=== PATIENT | male | born 1980 | race American Indian/Alaskan Native ===

== ENCOUNTER 2017-10-07 03:25 | Emergency (ER) | payer OTHER ==
[2017-10-07 03:55] VITALS: BP 117/69; PULSE 52; TEMP 98.7; BMI 23.6
--- NOTE | 2017-10-07 04:23 | PDOC ---
History of Present Illness - General Chief Complaint: Respiratory Stated Complaint: DIFFICULTY BREATHING Time Seen by Provider: 10/07/17 04:01 History Source: Patient Exam Limitations: No Limitations - History of Present Illness Initial Comments: CHIEF COMPLAINT: 36 y/o afebrile male with PMH COPD c/o chest pain with inspiration since yesterday evening. HISTORY OF PRESENT ILLNESS: The patient states this feels like the same pain he had when he had a pleural effusion. He denies f/c, n/v/d, cough, hemoptysis , abdominal pain, and all other symptoms. Vital signs on arrival are notable for pulse of 52. REVIEW OF SYSTEMS: GENERAL/CONSTITUTIONAL: No fever/chills. No weakness. No weight change. HEAD, EYES, EARS, NOSE AND THROAT: No change in vision. No ear pain or discharge. No sore throat. CARDIOVASCULAR: +chest pain with deep breaths. No shortness of breath. RESPIRATORY: No cough, wheezing, or hemoptysis. GASTROINTESTINAL: No abd pain, nausea, vomiting, diarrhea. GENITOURINARY: No dysuria, frequency, or change in urination. MUSCULOSKELETAL: No joint or muscle swelling or pain. No neck or back pain. SKIN: No rash or easy bruising. NEUROLOGIC: No headache, vertigo, loss of consciousness, or loss of sensation. PHYSICAL EXAM: GENERAL: The patient is awake, alert, and fully oriented, in no acute distress. He is well appearing, ambulatory, in NAD or obvious discomfort. HEAD: Normal with no signs of trauma. ENT: Pupils equal, round and reactive to light, extraocular movements intact, sclera anicteric, conjunctiva clear. Neck supple. LUNGS: Clear to auscultation bilaterally. Normal excursion. No respiratory distress or use of accessory muscles. CV: bradycardic with regular rhythm, S1/S2, no MRG. Cap refill < 2 sec. CHEST WALL: Reproducible pain with palpation of right anterior chest, which is location of patient's pain. ABDOMEN: Soft, non-distended, non-tender even to deep palpation, no hepatomegaly or splenomegaly, no masses. EXTREMITIES: Normal range of motion, no edema. NEUROLOGICAL: Normal speech, normal gait. CN II-XII grossly intact. SKIN: Warm, dry, normal turgor, no rashes or lesions noted. Past History - Past Medical History Allergies/Adverse Reactions: Allergies Allergy/AdvReac Type Severity Reaction Status Date / Time Penicillins Allergy Unknown Verified 10/07/17 03:54 peanut Allergy Verified 10/07/17 03:54 shellfish derived AdvReac Severe Swelling Verified 10/07/17 03:54 Home Medications: Ambulatory Orders Cholecalciferol (Vitamin D3) [Vitamin D3] 50,000 unit PO WEEKLY #4 capsule 11/05 Baclofen [Lioresal -] 10 mg PO BID #20 tab MDD 2 12/10/16 Diclofenac Sodium [Voltaren] 100 gm TP QID PRN 12/10/16 Meloxicam [Mobic (Nf) -] 15 mg PO DAILY #30 tablet MDD 15mg 12/23/16 Medical Marijuana [Medical Marijuana Oil] 1 puff IH QID PRN 02/05/17 Gabapentin 100 mg PO BID PRN #60 capsule 06/04/17 Anemia: No Asthma: Yes (childhood only) Cancer: No Cardiac Disorders: Yes (?cardiomegaly or ? valve) CVA: No (had symptoms but was told neg for cva at [place] [facility]) COPD: No CHF: No (may have had previously) Dementia: No Diabetes: No GI Disorders: Yes (constipation at times) Disorders: No HTN: No Hypercholesterolemia: No Liver Disease: No Seizures: Yes (age ~19 ?r/t "something i smoked") Thyroid Disease: No - Surgical History Abdominal Surgery: Yes (appendectomy) - Immunization History Immunization Up to Date: Yes - Suicide/Smoking/Psychosocial Hx Smoking History: Never smoked Have you smoked in the past 12 months: No Number of Cigarettes Smoked Daily: 1 Cigars Per Day: 0 Information on smoking cessation initiated: No Hx Alcohol Use: No Drug/Substance Use Hx: No Substance Use Type: Marijuana (daily) Hx Substance Use Treatment: No (completed new focus) *Physical Exam - Vital Signs Last Vital Signs Temp Pulse Resp BP Pulse Ox 98.7 F 52 L 20 117/69 100 10/07/17 03:52 10/07/17 03:52 10/07/17 03:52 10/07/17 03:52 10/07/17 03:52 Medical Decision Making - Medical Decision Making A/P: 36 y/o male with pleuritic chest pain with deep inspiration today. No fever. No cough. No tachycardia. Plan is as follows: 1. CXR CXR IMPRESSION: (wet read). No acute pathology. Spoke with the patient who informs me that he does have maintenance inhalers ( albuterol and singulair) for management of his chronic COPD. He doesn't have the singulair and tries not to use the albuterol because he doesn't want to become dependent on them. He states yesterday his allergies/COPD really started acting up and he had to use the albuterol inhaler every 4 hours, but he stopped after a few doses because he doesn't want to take medication consistently. I attempted to explain to him that taking the medication when needed will not make him dependent. Will give Duoneb in the ER. Patient refused Toradol. After Duoneb he states he feels much better. Informed him his symptoms are most likely a COPD exacerbation secondary to pollen/allergies. Suggested he fill his singulair inhaler and use consistently. Instructed him to take Ibuprofen every 6 hours with food for pain and suggested he f/u with his nursing instructor if symptoms persist. The patient verbalizes understanding of all instructions, has no further questions and is awaiting discharge. *DC/Admit/Observation/Transfer Diagnosis at time of Disposition: Pleuritic chest pain, COPD exacerbation, Muscular chest pain - Discharge Dispostion Disposition: HOME Condition at time of disposition: Improved - Referrals Referrals: Robin Pérez MD [Primary Care Provider] - - Patient Instructions Printed Discharge Instructions: DI for Chronic Obstructive Pulmonary Disease Additional Instructions: Discharge Instructions: -Please fill your Singulair prescription and start taking as prescribed -Take albuterol inhaler every 4 hours as prescribed if needed -Follow up with your Electrician Marine within 1 week -Return to the ER with any worsening or concerning symptoms - Post Discharge Activity
[2017-10-07] MEDS: ALBUTEROL SO4 2.5/IPRATROPIUM 0.5 INH SOL 3 ML VIAL.NEB. NEB SCH (05:37)
== END 2017-10-07 06:33 | disposition home or self-care (01) ==
LOC: JER 03:25
PROC: 3E0F7GC Introduction of Other Therapeutic Substance into Respiratory Tract, Via Natural or Artificial Opening (ICD-10-PCS; principal; 2017-10-07)
DX: R07.89 Other chest pain (principal); J44.1 Chronic obstructive pulmonary disease with (acute) exacerbation; M79.1 Myalgia
CPT/HCPCS: 71046-TC-FY; 94640; 99281-25; J7620

== ENCOUNTER 2019-06-22 13:37 | Emergency (ER) | payer OTHER ==
[2019-06-22 13:55] VITALS: TEMP 98; BMI 20.7
--- NOTE | 2019-06-22 15:05 | PDOC ---
History of Present Illness - General Chief Complaint: Chest Pain Stated Complaint: FOLLOW UP Time Seen by Provider: 06/22/19 14:49 - History of Present Illness Initial Comments: 06/22/19 16:07 CHIEF COMPLAINT: chest pain HISTORY OF PRESENT ILLNESS: 38 yo M with hx of pleural effusion presents to ED with R sided chest pain x 2 days. Patient reports that he pain is worsened with inspiration, coughing, and sneezing, as well as when he "leans over to tie my shoe." Patient reports smoking marijuana that is prescribed to him for chronic pain "from neuropoathy and arthritis" He was seen this morning at the [facility] and was told by PCP Dr. Schroeder to come to the ER for evaluation "because she heard something." Per PCP notes, concern for PE vs PNA vs MSK etiology of chest pain. No recent travel or sick contacts. PAST MEDICAL HISTORY: Denies past medical history FAMILY HISTORY: Cousin from "heart problem" at 23 yo SOCIAL HISTORY:Denies tobacco, alcohol, illicit drug use. SURGICAL HISTORY: Denies ALLERGIES: No known drug allergies REVIEW OF SYSTEMS General/Constitutional: Denies fever or chills. Denies weakness, weight change. HEENT: Denies change in vision. Denies ear pain or discharge. Denies sore throat. Cardiovascular: R pleuritic upper chest discomfort. Respiratory: Denies cough, wheezing, or hemoptysis. Gastrointestinal: Denies nausea, vomiting, diarrhea or constipation. Denies rectal bleeding. Genitourinary: Denies dysuria, frequency, or change in urination. Musculoskeletal: Denies joint or muscle swelling or pain. Denies neck or back pain. Skin and breasts: Denies rash or easy bruising. Neurologic: Denies headache, vertigo, loss of consciousness, or loss of sensation. Psychiatric: Denies depression or anxiety. PHYSICAL EXAM General Appearance: Well-appearing, appropriately dressed. No apparent distress. HEENT: EOMI, PERRLA, normal ENT inspection, normal voice, TMs normal, pharynx normal. No conjunctival pallor. No photophobia, scleral icterus. Neck: Supple. Trachea midline. No tenderness, rigidity, carotid bruit, stridor , lymphadenopathy, or thyromegaly. Respiratory/Chest: Lungs CTAB. No shortness of breath, chest tenderness, respiratory distress, accessory muscle use. No crackles, rales, rhonchi, stridor , wheezing, dullness. Cardiovascular: RRR. S1, S2. No JVD, murmur, bradycardia, tachycardia. Vascular Pulses: Dorsalis-Pedis (R): 2+, Dorsalis-Pedis (L): 2+ Gastrointestinal/Abdominal: Normal bowel sounds. Abdomen soft, non-distended. No tenderness or rebound tenderness. No organomegaly, pulsatile mass, guarding , hernia, hepatomegaly, splenomegaly. Lymphatic: No adenopathy, tenderness. Musculoskeletal/Extremities: Normal inspection. FROM of all extremities, normal capillary refill. Pelvis Stable. No CVA tenderness. No tenderness to extremities, pedal edema, swelling, erythema or deformity. Integumentary: Appropriate color, dry, warm. No cyanosis, erythema, jaundice or rash Neurologic: audit clerks supervisor II-XII intact. Fully oriented, alert. Appropriate mood/affect. Motor strength 5/5. No appreciable EOM palsy, facial droop or sensory deficit. Past History - Past Medical History Allergies/Adverse Reactions: Allergies Allergy/AdvReac Type Severity Reaction Status Date / Time Penicillins Allergy Unknown Verified 06/22/19 13:49 peanut Allergy Verified 06/22/19 13:49 shellfish derived AdvReac Severe Swelling Verified 06/22/19 13:49 Home Medications: Ambulatory Orders Cholecalciferol (Vitamin D3) [Vitamin D3] 50,000 unit PO WEEKLY #4 capsule 11/05 Baclofen [Lioresal -] 10 mg PO BID #20 tab MDD 2 12/10/16 Diclofenac Sodium [Voltaren] 100 gm TP QID PRN 12/10/16 Medical Marijuana [Medical Marijuana Oil] 1 puff IH QID PRN 02/05/17 Gabapentin 100 mg PO BID PRN #60 capsule 06/04/17 Albuterol Sulfate Inhaler - [Ventolin HFA Inhaler -] 2 inh PO Q4H PRN #1 inh 09/25 Cyclobenzaprine HCl [Flexeril 10 mg] 5 mg PO BID PRN #12 tablet 06/22/19 Cyclobenzaprine HCl 1 tab PO BID #12 tablet 06/23/19 Anemia: No Asthma: Yes (as a child) Cancer: No Cardiac Disorders: Yes (enlarged heart leaking valve) CVA: No (had symptoms but was told neg for cva at [facility]) COPD: Yes CHF: No (may have had previously) Dementia: No Diabetes: No GI Disorders: Yes (constipation at times) Disorders: No HTN: No Hypercholesterolemia: No Liver Disease: No Seizures: Yes (age ~19 ?r/t "something i smoked") Thyroid Disease: No Other medical history: arthritis - Surgical History Abdominal Surgery: Yes (appendectomy) - Immunization History Immunization Up to Date: Yes - Psycho Social/Smoking Cessation Hx Smoking History: Never smoked Have you smoked in the past 12 months: No Number of Cigarettes Smoked Daily: 1 Cigars Per Day: 0 Information on smoking cessation initiated: No Hx Alcohol Use: No Drug/Substance Use Hx: Yes (medical marijuana) Substance Use Type: Marijuana Hx Substance Use Treatment: No (completed new focus) Cardiac Specific PMH - Complaint Specific PMHX Pacemaker: No *Physical Exam - Vital Signs Last Vital Signs Temp Pulse Resp BP Pulse Ox 98 F 56 L 18 103/62 99 06/22/19 13:50 06/22/19 15:41 06/22/19 15:41 06/22/19 15:41 06/22/19 15:41 ED Treatment Course - LABORATORY CBC & Chemistry Diagram: 06/22/19 15:14 06/22/19 15:14 - ADDITIONAL ORDERS Additional order review: 06/22/19 15:14 RBC 4.32 MCV 93.8 MCHC 35.0 RDW 13.1 MPV 8.2 Neutrophils % 58.4 Lymphocytes % 31.7 Monocytes % 8.1 Eosinophils % 1.3 Basophils % 0.5 - RADIOLOGY Radiology Studies Ordered: Category Date Time Status CHEST PA & LAT [RAD] Stat Radiology 06/22/19 14:49 Completed - Medications Given in the ED: ED Medications Discontinued Medications Generic Name Dose Route Start Last Admin Trade Name Freq PRN Reason Stop Dose Admin Albuterol/Ipratropium 1 amp 06/22/19 16:53 06/22/19 17:03 Duoneb - NEB 06/22/19 16:54 1 amp ONCE ONE Administration Medical Decision Making - Medical Decision Making 06/22/19 16:23 38 yo M with hx of pleural effusion presents to ED with R sided chest pain x 2 days. Patient is PERC negative, unlikely PE. -EKG -CXR -labs CXR negative. Labs negative. Will duoneb and reassess. 06/22/19 17:16 Case discussed in detail with oncoming emergency provider Jeanette including history, physical exam and ancillary studies. In brief, this patient is being seen in the ED for a chief complaint of: I have reviewed the following results: all Pending results: reeval after duoneb Please call the PCP: Alexandre (prn) Plan for disposition as follows: likely discharge, pulm f/u Oncoming NPA give d has assumed care for the patient and will complete the evaluation and treatment. Discharge - Discharge Information Problems reviewed: Yes Clinical Impression/Diagnosis: Pleuritic chest pain Condition: Stable Disposition: HOME - Admission No - Additional Discharge Information Prescriptions: Cyclobenzaprine HCl [Flexeril 10 mg] 5 mg PO BID PRN #12 tablet PRN Reason: Back Pain - Follow up/Referral Referrals: Kaur Schroeder NP [Primary Care Provider] - Viraj Pitts MD [Staff Physician] - - Patient Discharge Instructions Patient Printed Discharge Instructions: DI for Atypical Chest Pain Additional Instructions: Please follow-up with electronic equipment trades worker as discussed. May take Mobic with Flexeril for discomfort. Drink plenty of fluids and avoid movements that trigger discomfort - Post Discharge Activity
[2019-06-22 15:43] VITALS: BP 103/62; PULSE 56
[2019-06-22 16:43] LABS: BASO % 0.5 % (0-2.0); EOS % 1.3 % (0-4.5); HEMATOCRIT 40.5 % (35.4-49); HEMOGLOBIN 14.2 GM/dL (11.7-16.9); LYMPH % 31.7 % (8-40); MCH 32.8 pg (25.7-33.7); MEAN CELL VOLUME 93.8 fl (80-96); MEAN PLT VOLUME 8.2 fl (7.5-11.1); MONO % 8.1 % (3.8-10.2); NEUT % 58.4 % (42.8-82.8); PLATELET COUNT 182 K/MM3 (134-434); RBC 4.32 M/mm3 (4.00-5.60); RDW 13.1 % (11.9-15.9); WHITE BLOOD COUNT 6.3 K/mm3 (4.0-10.0)
[2019-06-22 16:44] LABS: ALBUMIN 3.7 g/dl (3.4-5.0); ALK PHOS 56 U/L (45-117); ANION GAP 7 MMOL/L (8-16); BILIRUBIN,TOTAL 0.5 mg/dL (0.2-1); BLOOD UREA NITROGEN 13.2 mg/dL (7-18); CALCIUM 8.3 mg/dL (8.5-10.1); CHLORIDE 108 mmol/L (98-107); CO2 26 mmol/L (21-32); CREATININE 0.9 mg/dL (0.55-1.3); GLUCOSE,RANDOM 118 mg/dL (74-106); POTASSIUM 3.8 mmol/L (3.5-5.1); SGOT/AST 25 U/L (15-37); SGPT/ALT 25 U/L (13-61); SODIUM 141 mmol/L (136-145); TOT PROT 7.4 g/dl (6.4-8.2)
[2019-06-22] MEDS ORDERED: ALBUTEROL SO4 2.5/IPRATROPIUM 0.5 INH SOL 3 ML VIAL.NEB. NEB ONE ×2 (16:53→16:57)
--- NOTE | 2019-06-22 18:08 | PDOC ---
*Physical Exam - Vital Signs Last Vital Signs Temp Pulse Resp BP Pulse Ox 98 F 56 L 18 103/62 99 06/22/19 13:50 06/22/19 15:41 06/22/19 15:41 06/22/19 15:41 06/22/19 15:41 ED Treatment Course - LABORATORY CBC & Chemistry Diagram: 06/22/19 15:14 06/22/19 15:14 - ADDITIONAL ORDERS Additional order review: Laboratory Results 06/22/19 15:14 Sodium 141 Potassium 3.8 Chloride 108 H Carbon Dioxide 26 Anion Gap 7 L BUN 13.2 Creatinine 0.9 Est GFR (CKD-EPI)AfAm 126.90 Est GFR (CKD-EPI)NonAf 109.49 Random Glucose 118 H Calcium 8.3 L Magnesium 2.0 Total Bilirubin 0.5 AST 25 ALT 25 Alkaline Phosphatase 56 Creatine Kinase 394 H Creatine Kinase Index 0.6 CK-MB (CK-2) 2.4 Troponin I < 0.02 Total Protein 7.4 Albumin 3.7 06/22/19 15:14 RBC 4.32 MCV 93.8 MCHC 35.0 RDW 13.1 MPV 8.2 Neutrophils % 58.4 Lymphocytes % 31.7 Monocytes % 8.1 Eosinophils % 1.3 Basophils % 0.5 - Medications Given in the ED: ED Medications Discontinued Medications Generic Name Dose Route Start Last Admin Trade Name Freq PRN Reason Stop Dose Admin Albuterol/Ipratropium 1 amp 06/22/19 16:53 06/22/19 17:03 Duoneb - NEB 06/22/19 16:54 1 amp ONCE ONE Administration Medical Decision Making - Medical Decision Making 06/22/19 18:06 Patient received in signout from LAUREN Gonsalez. Patient will be discharged following neb treatment. Upon my arrival patient had completed the nebulizer. Patient able to take deep breaths in and out but with noted discomfort. Lung sounds donnelly clear. We will discharge patient home with recommendations to continue with Mobic. Will add Flexeril. Discharge - Discharge Information Problems reviewed: Yes Clinical Impression/Diagnosis: Pleuritic chest pain Condition: Stable Disposition: HOME - Additional Discharge Information Prescriptions: Cyclobenzaprine HCl [Flexeril 10 mg] 5 mg PO BID PRN #12 tablet PRN Reason: Back Pain - Follow up/Referral Referrals: Kaur Schroeder NP [Primary Care Provider] - Viraj Pitts MD [Staff Physician] - - Patient Discharge Instructions Patient Printed Discharge Instructions: DI for Atypical Chest Pain Additional Instructions: Please follow-up with media production support manager as discussed. May take Mobic with Flexeril for discomfort. Drink plenty of fluids and avoid movements that trigger discomfort - Post Discharge Activity
--- NOTE | 2019-06-23 15:15 | EKG ---
Test Reason : Blood Pressure : / mmHG Vent. Rate : 053 BPM Atrial Rate : 053 BPM P-R Int : 118 ms QRS Dur : 098 ms QT Int : 424 ms P-R-T Axes : 066 066 042 degrees QTc Int : 397 ms SINUS BRADYCARDIA NONSPECIFIC ST ABNORMALITY ABNORMAL ECG WHEN COMPARED WITH ECG OF 01-JUN-2019 10:51, NONSPECIFIC T WAVE ABNORMALITY NOW EVIDENT IN LATERAL LEADS Confirmed by SON CUETO, GABRIELA ([id number]) on 06/23/2019 3:14:33 PM Referred By: Confirmed By:GABRIELA CLINE MD
== END 2019-06-22 18:09 | disposition home or self-care (01) ==
LOC: JER 13:37
PROC: 3E0F7GC Introduction of Other Therapeutic Substance into Respiratory Tract, Via Natural or Artificial Opening (ICD-10-PCS; principal; 2019-06-22)
DX: R07.89 Other chest pain (principal); Z88.0 Allergy status to penicillin; Z91.013 Allergy to seafood; Z91.010 Allergy to peanuts
CPT/HCPCS: 36415; 71046-TC-FY; 80053; 82550; 82553; 83735; 84484; 85025; 93005; 93010; 94640; 99285-25

== ENCOUNTER 2020-07-24 22:59 | Emergency (ER) | payer OTHER ==
[2020-07-24 23:15] VITALS: BMI 21.5
[2020-07-25] MEDS ORDERED: DIPHTH,PERTUSS(ACELL),TET 0.5 ML DISP.SYRIN IM ONE ×2 (00:03→01:12)
[2020-07-25] MEDS ORDERED: ACETAMINOPHEN 325 MG TABLET (FP) PO ONE ×2 (00:06→06:47)
[2020-07-25] MEDS ORDERED: ACETAMINOPHEN 325 MG TABLET (FP) ONE ×2 (01:11→06:48)
[2020-07-25 01:54] VITALS: BP 131/91; PULSE 70; TEMP 98.6
== END 2020-07-25 07:04 | disposition home or self-care (01) ==
LOC: JER 22:59
PROC: 3E0234Z Introduction of Serum, Toxoid and Vaccine into Muscle, Percutaneous Approach (ICD-10-PCS; principal; 2020-07-24)
DX: S09.90XA Unspecified injury of head, initial encounter (principal)
CPT/HCPCS: 70450-TC; 71101-TC-LT-FY; 71250-TC; 72125-TC; 73523-TC-FY; 73552-TC-LT-FY; 74176-TC; 90715; 99285-25